=== PATIENT | female | born 1995 ===

== ENCOUNTER → 2019-03-20 | Outpatient (CLI) | payer OTHER ==
[~2019-03-20] MED LIST: PRENATAL TABLE1 EAC1 PO
== END | disposition home or self-care (01) ==
LOC: PRENATAL 14:30
DX: O35.3XX0 Maternal care for (suspected) damage to fetus from viral disease in mother, not applicable or unspecified (principal); O34.211 Maternal care for low transverse scar from previous cesarean delivery

== ENCOUNTER 2019-07-11 08:15 | Inpatient (IN) | payer OTHER ==
[~2019-07-11] VITALS: Ht 157.5 cm; Wt 3.2 kg
[2019-07-11] MEDS ORDERED: PRENATAL + DHA1 EAC1 PO (10:56)
== END 2019-07-20 12:59 | disposition home or self-care (01) | DRG 788 ==
LOC: OB/GYN 07-17 07:48 → O/R 07-17 07:48 → SURH 07-17 08:15 → O/R 07-17 08:15 → OB/GYN 07-17 15:35 → SURH 07-17 15:45 → OB/GYN 07-20 12:59
PROVIDERS: ADMIT Obstetrics & Gynecology
PROC: 4A1HXFZ Monitoring of Products of Conception, Cardiac Rhythm, External Approach (ICD-10-PCS; 2019-07-17)
PROC: 4A033R1 Measurement of Arterial Saturation, Peripheral, Percutaneous Approach (ICD-10-PCS; 2019-07-17)
PROC: 10D00Z1 Extraction of Products of Conception, Low, Open Approach (ICD-10-PCS; principal; 2019-07-17 15:45)
DX: O34.211 Maternal care for low transverse scar from previous cesarean delivery (principal); Z37.0 Single live birth; Z3A.39 39 weeks gestation of pregnancy